=== PATIENT | female | born 2000 | race Caucasian/White ===

== ENCOUNTER 2021-02-07 21:22 | Emergency (ER) | payer OTHER, SELFPAY ==
--- NOTE | ~2021-02-07 | XR_ITS ---
EXAMINATION: XR thoracic spine 2V DATE: 02/08/2021 00:15 INDICATION: Thoracic back pain TECHNIQUE: AP and lateral views of the thoracic spine are obtained. COMPARISON: None. FINDINGS: There are 41 degrees of thoracic dextroscoliosis measured from T4 through T8 and 46 degrees of thoracolumbar levoscoliosis measured from T8 through L2. Bone alignment is normal. There is no fr acture. The vertebral body heights are maintained. IMPRESSION: 1. No acute osseous abnormality. 2. Scoliosis. Reviewed, dictated and finalized at location A. ING SPECIALIST
--- NOTE | ~2021-02-07 | XR_ITS ---
EXAMINATION:XR_[id number]_CR DATE: 02/08/2021 00:15 INDICATION: Neck pain TECHNIQUE: AP, lateral, lateral swimmers and odontoid views of the cervical spine are provided. COMPARISON: None FINDINGS: Alignment is normal. The odontoid is intact. No fracture is identified. Vertebral body heig hts and disk spaces are normal. Prevertebral soft tissues are normal. IMPRESSION: 1. No acute osseous abnormality. However, if there is high clinical suspicion for cervical spine frac ture, CT is recommended. Reviewed, dictated and finalized at location A. [employer] SUPERVISOR IMPRESSION: 1. No acute osseous abnormality. However, if there is high clinical suspicion f or cervical spine fracture, CT is recommended.
[2021-02-07 21:38] VITALS: BP 125/85; PULSE 100; RESP 18; TEMP 37.2; O2SAT 99
[2021-02-07 23:30] VITALS: BP 124/84; PULSE 92; RESP 16; O2SAT 99
[2021-02-08] MEDS: KETOROLAC 30 MG/ML VIAL (*BKC) IM (00:15)
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
[2021-02-08 00:51] VITALS: BP 118/85; PULSE 73; RESP 16; O2SAT 100
== END 2021-02-08 00:51 | disposition home or self-care (01) ==
PROVIDERS: Emergency Provider Emergency Medicine; PCP Physician Assistant
DX: S29.9XXA Unspecified injury of thorax, initial encounter (principal); S19.9XXA Unspecified injury of neck, initial encounter; M41.9 Scoliosis, unspecified; V49.50XA Passenger injured in collision with unspecified motor vehicles in traffic accident, initial encounter
CPT/HCPCS: 72040; 72070; 96372; 99283; J1885